=== PATIENT | male | born 2000 | race Caucasian/White ===

== ENCOUNTER 2021-02-10 22:34 | Emergency (ER) | payer OTHER ==
[~2021-02-10] VITALS: Ht 180.3 cm; Wt 81.5 kg
[2021-02-10] MEDS ORDERED: LIDOCAINE 2%, 20ML INFIL ONE (23:00)
--- NOTE | 2021-02-10 23:11 | NUR ---
pt taken to CT
--- NOTE | 2021-02-10 23:17 | NUR ---
RETURNS FROM CT
[2021-02-11 00:11] VITALS: BP 118/70
== END 2021-02-11 00:14 | disposition home or self-care (01) ==
LOC: ED 23:02
DX: S06.0X0A Concussion without loss of consciousness, initial encounter (principal); S01.81XA Laceration without foreign body of other part of head, initial encounter; M54.2 Cervicalgia; X58.XXXA Exposure to other specified factors, initial encounter; Y93.89 Activity, other specified; Y92.009 Unspecified place in unspecified non-institutional (private) residence as the place of occurrence of the external cause; Y99.8 Other external cause status
CPT/HCPCS: 12051; 70450; 72125; 99285; J3490